=== PATIENT | female | born 1955 | race Caucasian/White ===

== ENCOUNTER → 2017-02-01 | Outpatient (CLI) | payer OTHER ==
[~2017-02-01] MED LIST: CALC1CAP21 PO; CRAN450T9 PO; D50KC PO; GLUC-113 PO; MULT-974 PO; NAPR375T2 PO; NITR-33 PO; OMEP-10 PO; OMG1KC PO; PREMARIN; VALS320T8 PO
[2017-02-01 10:21] LABS: BILIRUBIN,URINE NEGATIVE (NEGATIVE); KETONES,URINE NEGATIVE (NEGATIVE); LEUKOCYTE ESTERASE ,URINE NEGATIVE (NEGATIVE); NITRITE,URINE NEGATIVE (NEGATIVE); PH,URINE 6.5 (5-9); PROTEIN,URINE NEGATIVE (NEGATIVE); UROBILINOGEN,URINE NORMAL (NORMAL)
[2017-02-01 10:48] LABS: SQUAMOUS EPITHELIAL CELL,UR RARE /HPF
== END ==
LOC: LAB 10:07
PROVIDERS: ATTEND Urology
DX: R82.5 Elevated urine levels of drugs, medicaments and biological substances (principal); Z87.440 Personal history of urinary (tract) infections
CPT/HCPCS: 81000

== ENCOUNTER → 2017-08-26 | Outpatient (CLI) | payer OTHER | LOC: RAD 12:36 | PROVIDERS: ATTEND Nurse Practitioner | DX: Z12.31 Encounter for screening mammogram for malignant neoplasm of breast (principal) | CPT/HCPCS: 77067 ==

== ENCOUNTER → 2018-08-28 | Outpatient (CLI) | payer OTHER, MEDICARE ==
--- NOTE | 2018-08-30 10:45 | Diagnostic Imaging Report ---
Digital mammogram. Bilateral screening with 3-D tomosynthesis with CAD. The study was compared to prior exams of 08/26/2017, 08/25/2016, and 08/15/2015. At this time, there are no current complaints. There are scattered fibroglandular densities in both breasts which could obscure a lesion. Overall, there does not appear to have been any significant change. The benign-appearing nodular density in the lateral retroareolar region of the right breast seen on previous exams back to 08/15/2015 does not appear to have changed significantly. This finding has a generally benign appearance. There is no primary or secondary sign of malignancy noted. Impression: There is no evidence for malignancy. ACR BI-RADS Category 1: Negative. Result letter will be mailed to the patient. Note: At least 10% of breast cancer is not imaged by mammography. Dictated by: Dictated on workstation # [id number]
== END ==
LOC: RAD 11:26
PROVIDERS: ATTEND Nurse Practitioner
DX: Z12.31 Encounter for screening mammogram for malignant neoplasm of breast (principal)
CPT/HCPCS: 77067

== ENCOUNTER → 2018-10-13 | Outpatient (CLI) | payer MEDICARE ==
[~2018-10-13] MED LIST changes: +RECEIVED CONTRAST (Hold Metformin) IV SCH
[2018-10-13 07:52] LABS: BUN/CREATININE RATIO 16; CREATININE SERUM 0.86 MG/DL (0.60-1.30); GFR ESTIMATED > 60
[2018-10-13] MEDS: IOHEXOL 350 MG/ML 100 ML (OMNIPAQUE 350) VIAL IV ONE (08:06)
[2018-10-13] MEDS: NS 100 ML (IVPB) BAG IV ONE (08:07)
--- NOTE | 2018-10-13 08:48 | Diagnostic Imaging Report ---
PROCEDURE: CT neck soft tissue with contrast. TECHNIQUE: Multiple contiguous axial images were obtained through the neck after the administration of contrast. INDICATION: Right neck lump. No prior studies are available for comparison. Initial image through the brain does show a rounded partially calcified density in the right anterior aspect of the [place] approximately 9 mm in size. While this could conceivably represent volume averaging with the sella, possibly an aneurysm cannot be entirely excluded. CT angiography of the brain would be useful for further evaluation. A BB marker is placed at the area of palpable abnormality in the right neck. At the site of palpable abnormality, no definite underlying abnormality is seen. This is at the level of the submandibular glands. Bilateral submandibular glands as well as bilateral parotid glands appear to be symmetric. Posterior nasopharynx, oropharynx and larynx are unremarkable. Thyroid does contain several small low-density nodules, largest on the left in the lower pole measuring 9 mm. The parotid, carotid and assembler ping pong table spaces are unremarkable. No pathologically enlarged cervical lymph nodes are identified. No fluid collections are detected. There do appear to be mucous retention cysts or polyps in bilateral maxillary sinuses the largest on the right. IMPRESSION: 1. No underlying abnormality is seen at the site of palpable abnormality in the right neck. 2. Mucous retention cysts or polyps in bilateral maxillary sinuses. 3. Rounded partially calcified density in the region [place]. Aneurysm cannot excluded. CT angiography of the brain would be recommended for further evaluation. Dictated by: Dictated on workstation # [id number]
== END ==
LOC: RAD 07:26
PROVIDERS: ATTEND Otolaryngology Otolaryngology/Facial Plastic Surgery
DX: G93.89 Other specified disorders of brain (principal); R22.1 Localized swelling, mass and lump, neck
CPT/HCPCS: 36415; 70491; 82565; 84520

== ENCOUNTER → 2018-10-20 | Outpatient (CLI) | payer MEDICARE ==
[~2018-10-20] MED LIST changes: +IOHEXOL 350 MG/ML 100 ML (OMNIPAQUE 350) VIAL IV ONE; +NS 100 ML (IVPB) BAG IV ONE
--- NOTE | 2018-10-20 10:02 | Diagnostic Imaging Report ---
PROCEDURE: US Thyroid. TECHNIQUE: Multiple real-time grayscale images were obtained of the thyroid in various projections. INDICATION: Thyroid nodules. Correlation is made with CT soft tissue neck study from 10/13/2018. FINDINGS: Right lobe of the thyroid measures 4.3 x 2.2 x 2.3 cm and the left lobe measures 4.1 x 1.3 x 1.5 cm. Isthmus is approximately 4 mm in thickness. There is a mixed solid and cystic nodule involving the mid left lobe of the thyroid measuring 1.5 x 0.8 x 1.1 cm. No definite microcalcifications are seen. Right lobe contains 2 subcentimeter nodules, largest approximately 0.8 x 0.6 x 0.7 cm in the mid aspect. Smaller nodules approximate 5 mm in size. No other abnormalities are seen. IMPRESSION: Bilateral thyroid nodules, largest on the left. Fine-needle aspiration could be performed to the dominant nodule on the left. If not, followup ultrasound in 6 months could be performed to confirm stability. Dictated by: Dictated on workstation # [id number]
--- NOTE | 2018-10-20 11:02 | Diagnostic Imaging Report ---
PROCEDURE: CT angiography of the head with and without contrast. TECHNIQUE: Noncontrast CT of the head was obtained. Subsequently, after intravenous administration of contrast, thin section axial CT angiography of the head was performed. Source data was reformatted into multiple MIP reformats. Delayed postcontrast acquisition of the head was also acquired. INDICATION: Abnormal recent CT neck demonstrating a calcified density near the [place]. The study is performed for further evaluation. COMPARISON: Comparison is made with CT neck study from 10/13/2018. FINDINGS: Pre contrast images demonstrate ventricles and sulci to be within normal limits. No sulcal effacement or midline shift is seen. No acute intra-axial or extra-axial hemorrhage is detected. There is some mucosal thickening in the left maxillary sinus. Near-complete opacification of right maxillary sinus is noted. Delayed post contrast images are without abnormal enhancement. CT angiographic images demonstrate enhancing mass in the region of the planum sphenoidale just to the right of midline measuring 11 mm AP x 10 mm transverse. This correlates to the calcified lesion noted on the neck CT. This does have some calcifications within it. This appears to be separate from the anterior cerebral arteries. This is in close proximity to the anterior portion of the cavernous carotid artery. Sagittal reconstructions do show some flattening along the inferior margin of the lesion on the planum sphenoidale. There appear to be tiny probable dural tails along the anterior and posterior aspect. Features are most suggestive of planum sphenoidale meningioma. Bilateral middle cerebral arteries are unremarkable. The basilar and posterior cerebral arteries are unremarkable. There is patent left posterior communicating artery, normal variant. 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 While aneurysm cannot be entirely excluded due to its close proximity to the right distal internal carotid artery, other features of the mass make aneurysm less likely. Additional CT angiogram followup in approximately three to six months would be recommended to show continued stability. Dictated by: Dictated on workstation # [id number]
== END ==
LOC: RAD 08:28
PROVIDERS: ATTEND Otolaryngology Otolaryngology/Facial Plastic Surgery
DX: E04.2 Nontoxic multinodular goiter (principal); G93.89 Other specified disorders of brain
CPT/HCPCS: 70496; 76536

== ENCOUNTER → 2018-10-31 | Outpatient (CLI) | payer MEDICARE ==
[~2018-10-31] MED LIST changes: +GADOBUTROL 10 MMOL/10 ML (GADAVIST) VIAL IV ONE; -IOHEXOL 350 MG/ML 100 ML (OMNIPAQUE 350) VIAL IV ONE; -NS 100 ML (IVPB) BAG IV ONE; -RECEIVED CONTRAST (Hold Metformin) IV SCH
--- NOTE | 2018-10-31 12:45 | Diagnostic Imaging Report ---
PROCEDURE: MR imaging of the brain with and without contrast. TECHNIQUE: Multiplanar, multisequence MR imaging of the brain was performed with and without contrast. INDICATION: Meningioma noted on CT recently. Study is performed for further evaluation. Correlation is made with CT angiogram of the brain study from 10/20/2018. Ventricles and sulci appear within normal limits. 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 No diffusion restriction is identified on today's study to suggest acute ischemia. There is no midline shift. No acute intra-axial or extra-axial hemorrhage is identified. There is fairly homogeneous enhancing mass just to the right of midline cephalad to the sphenoid sinus measuring 9 mm cephalocaudal by 10 mm transverse by 10 mm AP. This appears to have a dural tail and is suggestive of meningioma at the planum sphenoidale along the inferior right frontal lobe convexity. No other enhancing lesions are identified. Corpus callosum is unremarkable. The sella parasellar structures are unremarkable. Note is made of moderate amount of mucosal thickening of the maxillary sinuses with probable mucous attention cysts or polyps in bilateral maxillary sinuses, largest on the right. IMPRESSION: Findings suggestive of a meningioma, as described along the inferior right frontal lobe convexity at the planum sphenoidale. No other significant abnormality is detected. Dictated by: Dictated on workstation # [id number]
== END ==
LOC: RAD 08:27
PROVIDERS: ATTEND Otolaryngology Otolaryngology/Facial Plastic Surgery
DX: D32.0 Benign neoplasm of cerebral meninges (principal)
CPT/HCPCS: 70553

== ENCOUNTER → 2018-11-02 | Outpatient (CLI) | payer MEDICARE ==
[~2018-11-02] VITALS: Ht 175.3 cm; Wt 113.4 kg
[~2018-11-02] MED LIST changes: -GADOBUTROL 10 MMOL/10 ML (GADAVIST) VIAL IV ONE
--- NOTE | 2018-11-02 16:48 | Diagnostic Imaging Report ---
INDICATION: Left thyroid nodule. PROCEDURE: Ultrasound guidance is provided for Dr. Douglass prior to thyroid FNA. FINDINGS: Guidance was provided for Dr. Douglass during a left thyroid nodule FNA. A total of 3 passes were made. IMPRESSION: Ultrasound guidance for left thyroid FNA by Dr. Douglass. Dictated by: Dictated on workstation # [id number]
== END ==
LOC: RAD 11:03
PROVIDERS: ATTEND Otolaryngology Otolaryngology/Facial Plastic Surgery
DX: E04.1 Nontoxic single thyroid nodule (principal)
CPT/HCPCS: 76942

== ENCOUNTER → 2019-05-31 | Outpatient (CLI) | payer MEDICARE ==
--- NOTE | 2019-05-31 12:55 | Diagnostic Imaging Report ---
PROCEDURE: US Thyroid. TECHNIQUE: Multiple real-time grayscale images were obtained of the thyroid in various projections. INDICATION: Thyroid nodule. FINDINGS: The patient underwent an ultrasound-guided aspiration of a nodule in the left lobe of the thyroid on 11/02/2018. The results of the exam are not known to me. On this study, the nodule in question is again identified. This nodule measures 1.5 x 0.8 x 0.9 cm and does show some internal vascularity. The nodule seems similar in appearance to the prior exam, however. Correlation with the patient's biopsy results would be recommended. The left lobe of the thyroid is otherwise unremarkable and the left lobe is not enlarged measuring 3.7 x 1.5 x 1.6 cm (normal gland size is 4-5 x 2 x 2 cm or less). The right lobe does not appear to be enlarged either. The right lobe measures 3.8 x 1.7 x approximately 1.5 cm. There are two small areas of mixed echogenicity within the right lobe. One is located in the inferior pole and measures 0.6 x 0.6 x 0.6 cm while the other is in the superior pole and measures 0.5 x 0.4 x 0.5 cm. I suspect that these are benign. If previous studies are available, they would be helpful for comparison. The isthmus is unremarkable. IMPRESSION: 1. The solid nodule in the inferior pole of the left lobe of the thyroid seen previously appears stable. Correlation with the patient's biopsy results would be recommended. 2. The small hypoechoic subcentimeter lesions of mixed echogenicity in the right lobe are most likely benign. If previous studies are available, they would be helpful for comparison. Otherwise, it may prove worthwhile to have a short-term (six-month) followup thyroid ultrasound exam for further evaluation. Dictated by: Dictated on workstation # [id number]
== END ==
LOC: RAD 10:32
PROVIDERS: ATTEND Otolaryngology Otolaryngology/Facial Plastic Surgery
DX: E04.1 Nontoxic single thyroid nodule (principal)
CPT/HCPCS: 76536

== ENCOUNTER → 2019-09-18 | Outpatient (CLI) | payer MEDICARE ==
--- NOTE | 2019-09-18 11:48 | Diagnostic Imaging Report ---
INDICATION: Routine screening. COMPARISON: Comparison is made with prior mammograms from 08/28/2018 and 08/26/2017. 2-D and 3-D bilateral screening mammography was performed. The current study was also evaluated with a Computer Aided Detection (CAD) system. 3-D tomosynthesis was also performed and reviewed. FINDINGS: Scattered fibroglandular densities are identified bilaterally. Previously noted circumscribed retroareolar nodule on the right has decreased in size. There are benign calcifications. No mass or malignant-appearing microcalcifications are seen. Axillae are unremarkable. IMPRESSION: No mammographic features suspicious for malignancy are identified. ACR BI-RADS Category 2: Benign findings. Result letter will be mailed to the patient. Note: At least 10% of breast cancer is not imaged by mammography. Dictated by: Dictated on workstation # [id number]
== END ==
LOC: RAD 09:16
PROVIDERS: ATTEND Obstetrics & Gynecology
DX: Z12.31 Encounter for screening mammogram for malignant neoplasm of breast (principal)
CPT/HCPCS: 77067

== ENCOUNTER → 2019-10-23 | Outpatient (CLI) | payer MEDICARE ==
--- NOTE | 2019-10-23 16:04 | Diagnostic Imaging Report ---
INDICATION: 64 roll a dramatic postmenopausal female. COMPARISON: None available. FINDINGS: AP Spine L1-L4: [BMD (g/cm2): 1.049] [T-Score: -1.3] [Z-Score: -0.8] [BMD Previous: NA] [BMD % Change: NA] LT Hip Neck: [BMD (g/cm2): 0.914] [T-Score: -0.9] [Z-Score: -0.1] LT Hip Total: [BMD (g/cm2):0.837] [T-Score:-1.4] [Z-Score: -0.9] [BMD Previous: NA] [BMD % Change: NA] RT Hip Neck: [BMD (g/cm2):0.958] [T-Score:-0.6] [Z-Score:0.2] RT Hip Total: [BMD (g/cm2):0.957] [T-score:-0.4] [Z-Score:0.0] [BMD Previous:NA] [BMD % Change:NA] *Indicates significant change from prior examination based on 95% confidence level. World Health Organization criteria for BMD interpretation classify patients as Normal (T-score at or above -1.0), Osteopenic (T-score between -1.0 and -2.5) or Osteoporotic (T-score at or below -2.5). LIMITATIONS AND MODIFICATION: None. FRACTURE RISK (FRAX SCORE): The ten year probability of (%): Major Osteoporotic Fracture: [8.1] Hip Fracture: [0.8] IMPRESSION: 1. Osteopenia (Low bone mass). 2. Baseline examination. 3. See below National Osteoporosis Foundation guidelines on when to potentially initiate pharmacologic therapy. Based on the National Osteoporosis Foundation Guidelines, pharmacologic treatment should be initiated in any of the following, unless clinical conditions suggest otherwise: * Any patient with prior fragility fracture of the hip or vertebrae. A spine fracture indicates 5X risk for subsequent spine fracture and 2X risk for subsequent hip fracture. * Osteoporosis (T-score <-2.5). * Postmenopausal women and men age 50 and older with low bone mass/osteopenia (T-score between -1.0 and -2.5) by DXA and 10-year major osteoporotic fracture greater than 20% or a 10-year probability of hip fracture greater than 3%. These fracture risks are supplied above in the FRAX score, if applicable. * Clinician judgement and/or patient preferences may indicate treatment for people with 10-year fracture probabilities above or below these levels. Dictated by: Dictated on workstation # [id number]
== END ==
LOC: RAD 10:56
PROVIDERS: ATTEND Nurse Practitioner Family
DX: M81.0 Age-related osteoporosis without current pathological fracture (principal); M85.80 Other specified disorders of bone density and structure, unspecified site; Z78.0 Asymptomatic menopausal state
CPT/HCPCS: 77080

== ENCOUNTER → 2019-11-13 | Outpatient (CLI) | payer MEDICARE ==
[~2019-11-13] MED LIST changes: +GADOBUTROL 15 MMOL/15 ML (GADAVIST) VIAL IV ONE
[2019-11-13 12:25] LABS: BUN/CREATININE RATIO 18; GFR ESTIMATED > 60
--- NOTE | 2019-11-13 13:52 | Diagnostic Imaging Report ---
PROCEDURE: MR imaging of the brain with and without contrast. TECHNIQUE: Multiplanar, multisequence MR imaging of the brain was performed with and without contrast. INDICATION: Meningioma, followup. COMPARISON: Correlation is made with the prior MRI of the brain from 10/31/2018. FINDINGS: The ventricles and sulci are within normal limits. The normal expected flow-voids within the carotid siphons are seen. There is no diffusion restriction identified. An enhancing lesion along the inferior right frontal lobe at the planum sphenoidale is again noted and very similar in size from the prior exam. This measures approximately 10 mm cephalocaudal x 9 mm AP x 9 mm transverse. This compares with 8 mm cephalocaudal x 9 mm AP x 10 mm transverse when measured by the same technique on the prior exam. No new mass is identified. There is no midline shift. No acute intra-axial or extra-axial hemorrhage is detected. The corpus callosum is unremarkable. The sella and parasellar structures are unremarkable. IMPRESSION: Stable enhancing lesion along the inferior right frontal lobe convexity at the planum sphenoidale, consistent with meningioma, when compared with examination from 1 year earlier. Dictated by: Dictated on workstation # [id number]
--- NOTE | 2019-11-13 14:04 | Diagnostic Imaging Report ---
PROCEDURE: MRI neck with and without contrast. TECHNIQUE: Multiplanar, multisequence MRI of the neck was performed with and without contrast. INDICATION: Lump anterior neck. FINDINGS: An oil marker was placed at the area of palpable abnormality in the right lower neck. There is ovoid circumscribed nodule posterior to the right submandibular gland measuring 13 mm x 17 mm. This may represent a mildly prominent lymph node. No other mass is seen. Parotid glands are symmetric bilaterally and unremarkable. Submandibular glands appear to be fairly symmetric. Posterior cervical chain is unremarkable. The posterior nasopharynx and oropharynx are unremarkable. Epiglottis and larynx are unremarkable. No supraclavicular lymphadenopathy is seen. No fluid collections are identified. IMPRESSION: Mildly prominent right submandibular lymph node. This study is otherwise unremarkable. Dictated by: Dictated on workstation # [id number]
== END ==
LOC: RAD 11:44
PROVIDERS: ATTEND Otolaryngology Otolaryngology/Facial Plastic Surgery
DX: D32.0 Benign neoplasm of cerebral meninges (principal); R59.0 Localized enlarged lymph nodes
CPT/HCPCS: 36415; 70543; 70553; 82565; 84520

== ENCOUNTER → 2020-01-11 | Outpatient (CLI) | payer MEDICARE ==
[~2020-01-11] MED LIST changes: -GADOBUTROL 15 MMOL/15 ML (GADAVIST) VIAL IV ONE
--- NOTE | 2020-01-11 17:49 | Diagnostic Imaging Report ---
PROCEDURE: US Thyroid. TECHNIQUE: Multiple real-time grayscale images were obtained of the thyroid in various projections. INDICATION: Thyroid nodules, follow-up. Correlation is made with prior thyroid ultrasound from 05/31/2019. FINDINGS: The right lobe of the thyroid measures 4.2 x 2.3 x 2.0 cm and the left lobe measures 3.5 x 1.3 x 1.5 cm. A mixed solid and cystic nodule in the lower pole of the left lobe of the thyroid measures 1.5 x 1.0 x 0.8 cm, similar to prior exam. Cystic-appearing nodules in the right lobe remain stable and less than 1 cm in size. No new mass is detected. Isthmus is 4 mm in thickness. IMPRESSION: Stable bilateral thyroid nodules when compared with examination from 05/31/2019. Dictated by: Dictated on workstation # [id number]
== END ==
LOC: RAD 14:14
PROVIDERS: ATTEND Otolaryngology Otolaryngology/Facial Plastic Surgery
DX: E04.2 Nontoxic multinodular goiter (principal)
CPT/HCPCS: 76536

== ENCOUNTER → 2020-09-30 | Outpatient (CLI) | payer MEDICARE ==
--- NOTE | 2020-10-01 13:21 | Diagnostic Imaging Report ---
INDICATION: Routine screening. COMPARISON: 09/18/2019 and 08/28/2018. TECHNIQUE: 2D and 3D bilateral screening mammography was performed with CAD. FINDINGS: Scattered fibroglandular densities are identified bilaterally. The parenchymal pattern is stable. No dominant mass or malignant appearing microcalcifications are seen. The axillae are unremarkable. There are benign calcifications. IMPRESSION: No mammographic features suspicious for malignancy are identified. ACR BI-RADS Category 2: Benign findings. Result letter will be mailed to the patient. Note: At least 10% of breast cancer is not imaged by mammography. Dictated by: Dictated on workstation # [id number]
== END ==
LOC: RAD 15:09
PROVIDERS: ATTEND Obstetrics & Gynecology
DX: Z12.31 Encounter for screening mammogram for malignant neoplasm of breast (principal)
CPT/HCPCS: 77063; 77067

== ENCOUNTER → 2020-10-31 | Outpatient (CLI) | payer MEDICARE ==
[~2020-10-31] MED LIST changes: +GADOBUTROL 15 MMOL/15 ML (GADAVIST) VIAL IV ONE
--- NOTE | 2020-10-31 10:12 | Diagnostic Imaging Report ---
PROCEDURE: MR imaging of the brain with and without contrast. TECHNIQUE: Multiplanar, multisequence MR imaging of the brain was performed with and without contrast. INDICATION: Follow-up meningioma. COMPARISON: 11/13/2019. FINDINGS: Stable size and appearance of the meningioma in the anterior cranial fossa right of midline measuring 0.9 cm AP, 0.8 cm transverse, and 0.7 cm craniocaudal. No significant mass effect or evidence of associated parenchymal edema is seen. No new masses are seen. No acute ischemia or hemorrhage. Old focal infarct is seen in the inferior left cerebellum. The ventricles, cortical sulci, and basilar cisterns are symmetric and unremarkable. The sellar and suprasellar regions have a normal appearance. The brainstem and posterior fossa are unremarkable. Retained secretions are seen in the bilateral maxillary sinuses. Small left mastoid effusion is present. The globes and orbits are symmetric and unremarkable. The scalp and calvarium have a normal appearance. IMPRESSION: 1. Stable meningioma in the anterior cranial fossa right of midline. No new enhancing lesions are identified. 2. No acute ischemia or hemorrhage. Dictated by: Dictated on workstation # [id number]
--- NOTE | 2020-10-31 10:48 | Diagnostic Imaging Report ---
PROCEDURE: US Thyroid. TECHNIQUE: Multiple real-time grayscale images were obtained of the thyroid in various projections. INDICATION: Thyroid mass COMPARISON: 01/11/2020. Right thyroid lobe measured 4.2 cm unchanged in size from comparison. It contains midpole subcentimeter circumscribed nodules of 7 mm and 5 mm maximal unchanged. The left lobe measured 3.3 cm long axis. It contains a lower pole somewhat heterogeneous and predominantly hypoechoic mass measuring 1.4 x 1.2 cm previously 1.5 x 1.0 cm not significantly changed. No new mass. The parenchyma appeared otherwise unremarkable with normal color Doppler flow IMPRESSION: Stable unchanged bilateral thyroid nodules on the right subcentimeter and predominantly cystic on the left. Heterogeneous, hypoechoic and solid and is a TI-RADS 4 lesion. Continued follow-up with repeat exam in one year's time recommended. Dictated by: Dictated on workstation # [id number]
--- NOTE | 2020-10-31 10:50 | Diagnostic Imaging Report ---
PROCEDURE: MRI neck with and without contrast. TECHNIQUE: Multiplanar, multisequence MRI of the neck was performed with and without contrast. INDICATION: Right neck lump. Follow-up prominent right submandibular lymph node. COMPARISON: 11/13/2019. FINDINGS: There has been interval increase in size in the right submandibular mass now measuring 1.8 x 1.3 cm and 1.7 cm craniocaudal, previously measuring 1.7 x 1.3 x 1.4 cm. This also demonstrates contrast enhancement. There is no fat plane between this mass and the right submandibular gland. The left submandibular gland is unremarkable. The bilateral parotid glands have a normal appearance. Stable bilateral small thyroid nodules. The aerodigestive tract is patent. No mass is seen in the nasopharynx, oropharynx, hypopharynx, or larynx. No evidence of airway compromise. No prevertebral or retropharyngeal fluid collections. The parapharyngeal fat planes are preserved. The included lung apices are clear. The flow voids of the major vascular structures in the neck are preserved. Please see the separate dictated report on the MRI brain for intracranial findings. IMPRESSION: 1. Interval increase in size in the enhancing mass in the right submandibular region. This does not demonstrate any fat planes between the right submandibular gland and may represent a primary salivary gland tumor. Recommend further evaluation with ultrasound of the right submandibular region and ultrasound-guided FNA or biopsy to further evaluate. 2. No mass or fluid collection in the aerodigestive tract. No evidence of airway compromise. Dictated by: Dictated on workstation # [id number]
== END ==
LOC: RAD 08:00
PROVIDERS: ATTEND Otolaryngology Otolaryngology/Facial Plastic Surgery
DX: D32.0 Benign neoplasm of cerebral meninges (principal); E04.2 Nontoxic multinodular goiter; R22.1 Localized swelling, mass and lump, neck
CPT/HCPCS: 70543; 70553; 76536

== ENCOUNTER → 2020-11-26 | Outpatient (CLI) | payer MEDICARE ==
[~2020-11-26] MED LIST changes: -GADOBUTROL 15 MMOL/15 ML (GADAVIST) VIAL IV ONE
--- NOTE | 2020-11-26 17:22 | Diagnostic Imaging Report ---
CLINICAL INDICATION: Patient with right cervical adenopathy. EXAM: Focused ultrasound evaluation of the right submandibular region. COMPARISON: Thyroid ultrasound dated 10/31/2020. MRI of the neck soft tissue with and without contrast dated 10/31/2020. FINDINGS: There is a 1.9 cm x 2.0 cm x 1.4 cm slightly heterogeneous hypoechoic lobulated, solid mass associated with the right submandibular gland. This is noted on the prior MRI. There is central Doppler flow associated with it. There is no other significant abnormality seen in the region. IMPRESSION: There is a 2.0 cm solid mass associated with the right submandibular gland which demonstrates central Doppler flow. This correlates to the abnormality seen on the comparison MRI of the neck soft tissue. Given that this mass enhances and associated with the right submandibular gland, ENT consultation with biopsy and/or removal is suggested to exclude a salivary gland malignancy. Dictated by: Dictated on workstation # [id number]
== END ==
LOC: RAD 15:00
PROVIDERS: ATTEND Otolaryngology Otolaryngology/Facial Plastic Surgery
DX: R59.0 Localized enlarged lymph nodes (principal); K11.8 Other diseases of salivary glands
CPT/HCPCS: 76536

== ENCOUNTER → 2020-12-05 | Outpatient (CLI) | payer MEDICARE ==
[~2020-12-05] VITALS: Ht 175.3 cm; Wt 115.9 kg
[~2020-12-05] MED LIST changes: +LIDOCAINE 1% INJ 20 ML 20 ML VIAL INJ ONE
--- NOTE | 2020-12-05 14:52 | Diagnostic Imaging Report ---
INDICATION: Right submandibular mass. Patient presents for ultrasound-guided fine-needle aspiration. PROCEDURE: Patient was brought to the procedure room and placed on table in supine position. Ultrasound imaging of the right neck was performed to evaluate appropriate entry site. Right neck was then prepped and draped in the usual sterile fashion. A small amount of 1% lidocaine was utilized for local anesthesia. A total of four passes were made into the solid mass in the right submandibular location utilizing 25-gauge needles and fine-needle aspiration technique. A total of two core biopsies were obtained utilizing the 20-gauge [place] needle. The needles were removed and hemostasis was obtained. Patient tolerated the procedure well and left the department in stable condition. IMPRESSION: Successful ultrasound-guided fine needle aspiration and core biopsy of the solid right submandibular mass. Pathology results are currently pending. Dictated by: Dictated on workstation # [id number]
== END ==
LOC: RAD 09:00
PROVIDERS: ATTEND Otolaryngology Otolaryngology/Facial Plastic Surgery
DX: R22.0 Localized swelling, mass and lump, head (principal)
CPT/HCPCS: 10005

== ENCOUNTER → 2020-12-15 | Outpatient (CLI) | payer MEDICARE ==
[~2020-12-15] MED LIST changes: -LIDOCAINE 1% INJ 20 ML 20 ML VIAL INJ ONE
--- NOTE | 2020-12-15 16:49 | Diagnostic Imaging Report ---
PROCEDURE: CT bilateral knees without contrast. TECHNIQUE: Multiple axial CT images through the bilateral knees were performed. 2D reconstruction in the sagittal and coronal planes was performed. Auto Exposure Controls were utilized during the CT exam to meet ALARA standards for radiation dose reduction. DATE: December 15, 2020. INDICATION: 65-year-old female, chronic bilateral knee pain. FINDINGS: Combined acquisition imaging of both knees does limit trabecular and bone detail. There is severe medial and patellofemoral compartment joint space loss of the left knee with dnuc-sy-huuf articulation. There is marked irregularity of the articulating surfaces of the patellofemoral articulation. There is moderate lateral compartment joint space loss. There are central and marginal osteophytes associated with the lateral compartment with marginal osteophytes present at the patellofemoral and medial compartments. There is no large knee joint effusion on the left. There is no acute fracture. There is no cortical or aggressive bone destruction. There is severe patellofemoral and moderate medial and lateral compartment joint space loss of the right knee. There is marked irregularity of the articulating surfaces associated with the patellofemoral compartment. There is no large right knee joint effusion. There is no acute fracture. There is no aggressive bone lesion. There is chondrocalcinosis. IMPRESSION: 1. Advanced tricompartmental arthritis of both knees, most notably involving the patellofemoral compartments bilaterally and the medial compartment of the left knee. Osteoarthritis and calcium pyrophosphate dihydrate deposition disease would be in the differential diagnosis for the cause of the arthritis. 2. No large knee joint effusion. Dictated by: Dictated on workstation # [id number]
== END ==
LOC: RAD 15:32
PROVIDERS: ATTEND Orthopaedic Surgery
DX: M17.0 Bilateral primary osteoarthritis of knee (principal)

== ENCOUNTER 2021-01-08 05:35 | Outpatient (RCR) | payer MEDICARE ==
[~2021-01-08] VITALS: Ht 175.3 cm; Wt 118.0 kg
[2021-01-08] MEDS ORDERED: MAGN400C PO (14:45)
[2021-01-08] MEDS ORDERED: DIPH25CA79 PO (14:45)
[2021-01-08] MEDS ORDERED: NAPR-1084 PO (14:45)
[2021-01-08] MEDS ORDERED: OLME40TA12 PO (14:45)
[2021-01-08] MEDS ORDERED: FLUT9.9S NS (14:45)
[2021-01-08] MEDS ORDERED: L.AC1CAP6 PO (14:45)
[2021-01-08] MEDS ORDERED: AMLO-250 PO (14:45)
[2021-01-08] MEDS ORDERED: OMEP20TA33 PO (14:45)
[2021-01-16] MEDS ORDERED: MAGN125C PO ×2 (14:23)
[2021-01-16] MEDS ORDERED: NAPR220C61 PO (14:23)
[2021-01-16] MEDS ORDERED: [UNRECOGNIZED DRUG - OTHER] PO (14:23)
[2021-01-16] MEDS ORDERED: CALC1CAP5 PO (14:23)
[2021-01-16] MEDS ORDERED: [UNRECOGNIZED DRUG - OTHER] PO ×2 (14:23)
[2021-01-16] MEDS ORDERED: GLUC1CAP37 PO (14:23)
[2021-01-16] MEDS ORDERED: FLUT9.9S NS (14:23)
[2021-01-16] MEDS ORDERED: GLUC-235 PO (14:23)
== END 2021-01-15 09:03 | disposition home or self-care (01) ==
LOC: PREOP 05:35 → EDSTATUS 12:00 → PREOP 01-15 09:03
PROVIDERS: ATTEND Otolaryngology Otolaryngology/Facial Plastic Surgery
DX: Z01.812 Encounter for preprocedural laboratory examination (principal); K11.8 Other diseases of salivary glands; Z20.822 Contact with and (suspected) exposure to COVID-19
CPT/HCPCS: 87635

== ENCOUNTER 2021-01-16 07:32 | Day surgery (SDC) | payer MEDICARE ==
[~2021-01-16] VITALS: Ht 175.3 cm; Wt 118.0 kg
[2021-01-16] VITALS (10 sets, daily range): BP systolic 114–153; BP diastolic 61–89
[~2021-01-16 07:32] MED LIST changes: +AMLO-250 PO; +DIPH25CA79 PO; +FLUT9.9S NS; +L.AC1CAP6 PO; +MAGN400C PO; +NAPR-1084 PO; +OLME40TA12 PO; +OMEP20TA33 PO
[2021-01-16] MEDS ORDERED: LACTATED RINGERS 1,000 ML IV PRN (07:45)
--- NOTE | 2021-01-16 08:15 | Progress Note-Pre Operative ---
Pre-Operative Progress Note H&P Reviewed The H&P was reviewed, patient examined and no changes noted. Date Seen by Provider: January 16, 2021 Time Seen by Provider: 06:30 Date H&P Reviewed: January 16, 2021 Time H&P Reviewed: 08:15 Pre-Operative Diagnosis: Right Submandibular Gland Mass SHENA ABARCA MD January 16, 2021 08:15
[2021-01-16] MEDS ORDERED: LIDOCAINE PF 2% 5 ML (XYLOCAINE) VIAL ONE (08:25)
[2021-01-16] MEDS ORDERED: GLYCOPYRROLATE 0.2 MG/ML (ROBINUL) 2 ML VIAL ONE (08:25)
[2021-01-16] MEDS ORDERED: fentaNYL INJ 100 MCG/2 ML AMP ONE (08:25)
[2021-01-16] MEDS ORDERED: NEOSTIGMINE 3 MG/3 ML VIAL ONE (08:25)
[2021-01-16] MEDS ORDERED: ONDANSETRON 4 MG/2 ML (SDV) Z0FRAN ONE (08:25)
[2021-01-16] MEDS ORDERED: proPOfol 200 MG/20 ML (DIPRIVAN) VIAL IV ONE (08:25)
[2021-01-16] MEDS ORDERED: ROCURONIUM 10 MG/ML 5 ML SYRINGE IV ONE (08:25)
[2021-01-16] MEDS ORDERED: SEVOFLURANE (ULTANE) 15 ML INHAL SOLN ONE ×6 (08:25→10:37)
[2021-01-16] MEDS ORDERED: MIDAZOLAM 2 MG/2 ML (VERSED) VIAL ONE (08:26)
[2021-01-16] MEDS ORDERED: MUPIROCIN 2% OINT 22 GM (BACTROBAN) TUBE ONE (08:34)
[2021-01-16] MEDS ORDERED: LIDOCAINE/EPI 1%-1:100,000 (XYLOCAINE) 20ML ONE (08:34)
[2021-01-16] MEDS ORDERED: PHENYLEPHRINE 100 MCG/ML 10 ML (ANESTHESIA) SYR ONE (10:36)
[2021-01-16] MEDS ORDERED: DESFLURANE (SUPRANE) 15 ML INHAL SOLN ONE (10:38)
[2021-01-16] MEDS ORDERED: ACETAMINOPHEN 325 MG TABLET PO PRN (10:45)
--- NOTE | 2021-01-16 10:45 | Progress Note-Post Operative ---
Post-Operative Progess Note Surgeon (s)/Director Of Vital Statistics (s) Surgeon SHENA ABARCA MD Director Of Vital Statistics n/a Pre-Operative Diagnosis Right Submandibular Gland Mass Post-Operative Diagnosis same Post-Op Procedure Note Date of Procedure: January 16, 2021 Name of Procedure Performed: Excision of Right Submandibular Gland Description & Findings Description and Findings: n/a Anesthesia Type get Estimated Blood Loss minimal Packing none. Specimen(s) collected/removed right submandibular galnd for frozen SHENA ABARCA MD January 16, 2021 10:45
[2021-01-16] MEDS ORDERED: fentaNYL INJ 100 MCG/2 ML AMP IVP ONE (11:15)
[2021-01-16] MEDS ORDERED: ONDANSETRON 4 MG/2 ML (SDV) Z0FRAN IVP PRN ×2 (11:15→18:00)
[2021-01-16] MEDS ORDERED: morphine INJ 10 MG/ML 1ML (SYR OR VIAL) IVP ONE (11:15)
--- NOTE | 2021-01-16 11:16 | Anesthesia-General Post-Op ---
General Patient Condition Mental Status/LOC: Same as Preop Cardiovascular: Satisfactory Nausea/Vomiting: Absent Respiratory: Satisfactory Pain: Controlled Complications: Absent Post Op Complications Complications None Follow Up Care/Instructions Patient Instructions None needed. Anesthesia/Patient Condition Patient Condition Patient is doing well, no complaints, stable vital signs, no apparent adverse anesthesia problems. No complications reported per nursing. CAROLANN LYLE CRNA January 16, 2021 11:16
[2021-01-16] MEDS ORDERED: morphine INJ 10 MG/ML 1ML (SYR OR VIAL) ONE (11:20)
[2021-01-16] MEDS ORDERED: HYDROcodone/APAP 5 MG/325 MG (LORTAB) TAB ONE ×2 (12:20→13:02)
[2021-01-16] MEDS: HYDROcodone/APAP 5 MG/325 MG (LORTAB) TAB PO PRN ×4 (12:31→22:50)
[2021-01-16] MEDS ORDERED: [UNRECOGNIZED DRUG - OTHER] PO (14:23)
[2021-01-16] MEDS ORDERED: GLUC-235 PO (14:23)
[2021-01-16] MEDS ORDERED: MAGN125C PO ×2 (14:23)
[2021-01-16] MEDS ORDERED: CALC1CAP5 PO (14:23)
[2021-01-16] MEDS ORDERED: [UNRECOGNIZED DRUG - OTHER] PO ×2 (14:23)
[2021-01-16] MEDS ORDERED: NAPR220C61 PO (14:23)
[2021-01-16] MEDS ORDERED: FLUT9.9S NS (14:23)
[2021-01-16] MEDS ORDERED: GLUC1CAP37 PO (14:23)
[2021-01-16] MEDS: D5 1/2 NS W/KCL 20 MEQ/L 1,000 ML IV SCH (15:10)
--- NOTE | 2021-01-16 17:27 | Progress Note ---
Standard Progress Note Progress Notes/Assess & Plan Date Seen by a Provider: January 16, 2021 Time Seen by a Provider: 17:30 Progress/Assessment & Plan ENT-Rafat doing well post-op minimal drainage incision dry flat and intact diet as andre itzel if needed plan on drian out in am and then home await final path report which should be back next tuesday or tue Final Diagnosis right submandibular mass SEHNA ABARCA MD January 16, 2021 17:26
[2021-01-16] MEDS ORDERED: PATIENT MAY USE OWN MEDS, ALL MC SCH (18:00)
[2021-01-16] MEDS ORDERED: METHYLSULFONYLMETHANE PO SCH (21:00)
[2021-01-16] MEDS ORDERED: amLODIPine 5 MG (NORVASC) TAB PO SCH (21:00)
[2021-01-16] MEDS ORDERED: CALCIUM PO SCH (21:00)
[2021-01-16] MEDS ORDERED: MAGNESIUM CITRATE PO SCH (21:00)
[2021-01-16] MEDS ORDERED: OLMESARTAN 40 MG TABLET PO SCH (21:00)
[2021-01-16] MEDS ORDERED: [UNRECOGNIZED DRUG - OTHER] PO SCH (21:00)
[2021-01-16] MEDS ORDERED: CHONDROITIN PO SCH (21:00)
[2021-01-16] MEDS ORDERED: VIT D PO SCH (21:00)
[2021-01-16] MEDS ORDERED: GLUCOSAMINE PO SCH (21:00)
[2021-01-17] VITALS: BP 122/67
[2021-01-17 04:00] VITALS: BP 131/39
[2021-01-17] MEDS: D5 1/2 NS W/KCL 20 MEQ/L 1,000 ML IV SCH (04:00)
[2021-01-17] MEDS: HYDROcodone/APAP 5 MG/325 MG (LORTAB) TAB PO PRN ×2 (04:07→09:24)
--- NOTE | 2021-01-17 06:10 | Progress Note ---
Standard Progress Note Progress Notes/Assess & Plan Date Seen by a Provider: January 17, 2021 Time Seen by a Provider: 06:00 Progress/Assessment & Plan Neda doing well post-op minimal drainage incision dry flat and intact diet as andre itzel if needed plan on drian out in am and then home await final path report which should be back next tuesday or tue Neda drain out incision -looks good will discharge after breakfast will call with return apt for review of patholoyg and suture removal discharge prescription in chart SHENA ABARCA MD January 17, 2021 06:10
[2021-01-17 08:38] VITALS: BP 123/64
[2021-01-17] MEDS ORDERED: MAGNESIUM CITRATE PO SCH (09:00)
[2021-01-17] MEDS ORDERED: GLUCOSAMINE PO SCH (09:00)
[2021-01-17] MEDS ORDERED: [UNRECOGNIZED DRUG - OTHER] PO SCH (09:00)
[2021-01-17] MEDS ORDERED: FLUTICASONE NASAL SPRAY (FLONASE) 16 GM BTL NS SCH (09:00)
[2021-01-17] MEDS ORDERED: NON-FORMULARY MEDICATION 1 EA EA (Diphenhydramine HCl (Benadryl) 25 MG) PO SCH (09:00)
[2021-01-17] MEDS ORDERED: NON-FORMULARY MEDICATION 1 EA EA (Fluticasone Propionate (Flonase Allergy Relief) 1 SPRAY) NS SCH (09:00)
[2021-01-17] MEDS ORDERED: MAGNESIUM CITRATE 125 MG PO SCH (09:00)
[2021-01-17] MEDS ORDERED: CHONDROITIN PO SCH (09:00)
[2021-01-17] MEDS ORDERED: [UNRECOGNIZED DRUG - OTHER] PO SCH (09:00)
[2021-01-17] MEDS ORDERED: METHYLSULFONYLMETHANE PO SCH (09:00)
[2021-01-17] MEDS ORDERED: diphenhydrAMINE 25 MG TAB (BENADRYL) PO SCH (09:00)
== END 2021-01-17 09:56 | disposition home or self-care (01) ==
LOC: SDC 07:32 → CSD 12:19 → SDC 01-17 09:56
PROVIDERS: ATTEND Otolaryngology Otolaryngology/Facial Plastic Surgery
DX: C08.0 Malignant neoplasm of submandibular gland (principal); I10 Essential (primary) hypertension; K21.9 Gastro-esophageal reflux disease without esophagitis; E78.5 Hyperlipidemia, unspecified; G47.00 Insomnia, unspecified; F32.9 Major depressive disorder, single episode, unspecified; Z87.891 Personal history of nicotine dependence; Z79.899 Other long term (current) drug therapy
CPT/HCPCS: 87081; 88307; 88331

== ENCOUNTER → 2021-02-13 | Outpatient (CLI) | payer MEDICARE ==
[~2021-02-13] MED LIST changes: +CALC1CAP5 PO; +GLUC-235 PO; +GLUC1CAP37 PO; +MAGN125C PO; +NAPR220C61 PO; +[UNRECOGNIZED DRUG - OTHER] PO; +[UNRECOGNIZED DRUG - OTHER] PO
--- NOTE | 2021-02-13 16:47 | Diagnostic Imaging Report ---
EXAMINATION: CT chest without contrast. TECHNIQUE: Multiple contiguous axial images were obtained through the chest without the use of intravenous contrast. All CT scans use one or more of the following dose optimizing techniques: automated exposure control, MA and/or KvP adjustment based on patient size and exam type or iterative reconstruction. HISTORY: Adenoid cystic carcinoma. COMPARISON: None available. FINDINGS: There is no edema or pneumonia. No pleural effusion. No pneumothorax. No suspicious nodules. There is no axillary or supraclavicular lymphadenopathy. There is no mediastinal lymphadenopathy. Heart size is normal. There are no coronary artery calcifications. No pericardial effusion. Aorta is normal in caliber. Limited views of the upper abdomen show a calcified mass measuring 2.6 x 1.9 cm near the root of the mesentery and adjacent to the pancreas. There is a 3.9 x 2.8 cm low-attenuating lesion in the gastrohepatic ligament, potentially within the left hemiliver (series 2, image 110). There are no suspicious osseous lesions. IMPRESSION: 1. No metastatic disease in the chest. 2. Indeterminate calcified mass near the root of the mesentery and adjacent to the pancreas. Pancreas protocol abdomen and pelvis CT is recommended. 3. Indeterminate fluid-attenuation lesion potentially within the left hemiliver or gastrohepatic ligament. This can be better evaluated on a dedicated abdomen and pelvis CT as well. Dictated by: Dictated on workstation # [id number]
== END ==
LOC: RAD 11:15
PROVIDERS: ATTEND Nurse Practitioner Family
DX: C08.0 Malignant neoplasm of submandibular gland (principal)
CPT/HCPCS: 71250

== ENCOUNTER → 2021-02-17 | Outpatient (CLI) | payer MEDICARE ==
[~2021-02-17] MED LIST changes: +HOLD METFORMIN - RECEIVED CONTRAST 20 ML VIAL IV SCH; +IOHEXOL 350 MG/ML 100 ML (OMNIPAQUE 350) VIAL IV ONE; +NS 100 ML (IVPB) BAG IV ONE
--- NOTE | 2021-02-17 13:41 | Diagnostic Imaging Report ---
EXAMINATION: CT abdomen and pelvis with and without intravenous contrast. TECHNIQUE: Precontrast acquisitions were acquired through the abdomen and pelvis. Multiple contiguous axial images were obtained through the abdomen and pelvis after the administration of intravenous contrast. All CT scans use one or more of the following dose optimizing techniques: automated exposure control, MA and/or KvP adjustment based on patient size and exam type or iterative reconstruction. HISTORY: History of pancreatitis. History of adenoid cystic carcinoma. Followup. COMPARISON: 02/13/2021. FINDINGS: The heart is unremarkable. The included lung bases are clear. Stable partially calcified mass adjacent to the head of the pancreas measuring 2.6 x 1.9 cm. No associated pancreatic ductal dilation or pancreatic atrophy. No peripancreatic inflammatory changes. Redemonstration of the hypoattenuating focus which appears outside the liver and within the gastrohepatic ligament. Nonenhancing cysts are visualized scattered in the liver. A likely flash filling hemangioma is seen in the right hepatic lobe. No suspicious hepatic lesions are seen. The gallbladder is surgically absent. No intra or extrahepatic biliary dilation. The portal vein is patent. The spleen, adrenal glands, and kidneys have a normal appearance. There is no pathologically enlarged mesenteric or retroperitoneal adenopathy. The bowel loops are nondilated. The appendix is visualized in the right lower quadrant and has a normal appearance. Scattered diverticula are present without evidence of acute diverticulitis. There is no free fluid or free air. No acute osseous abnormalities. A fat-containing periumbilical hernia is present. Ureters and bladder are grossly normal. There is no free air, loculated collection, or adenopathy in the pelvis. IMPRESSION: 1. Redemonstration of the partially calcified mass adjacent to the head of the pancreas. Findings are favored to represent sequelae of chronic pancreatitis given the patient history; however, a partially calcified pancreatic neoplasm is not completely excluded and followup is recommended in 6-[address] or MRI of the abdomen following pancreatic protocol. 2. Stable hypoattenuating focus within the gastrohepatic ligament. This is indeterminate and attention on followup is recommended. Dictated by: Dictated on workstation # [id number]
== END ==
LOC: RAD 11:15
PROVIDERS: ATTEND Nurse Practitioner Family
DX: R91.8 Other nonspecific abnormal finding of lung field (principal); K86.9 Disease of pancreas, unspecified; Z85.858 Personal history of malignant neoplasm of other endocrine glands
CPT/HCPCS: 74178

== ENCOUNTER 2021-05-04 09:50 | Outpatient (RCR) | payer MEDICARE ==
[2021-02-17 11:43] LABS: BUN/CREATININE RATIO 15; CREATININE SERUM 0.85 MG/DL (0.60-1.30); GFR ESTIMATED > 60
[~2021-05-04 09:50] MED LIST changes: -HOLD METFORMIN - RECEIVED CONTRAST 20 ML VIAL IV SCH; -IOHEXOL 350 MG/ML 100 ML (OMNIPAQUE 350) VIAL IV ONE; -NS 100 ML (IVPB) BAG IV ONE
== END 2021-05-10 | disposition home or self-care (01) ==
LOC: ONC 09:50
PROVIDERS: ATTEND Radiology Radiation Oncology
DX: Z51.0 Encounter for antineoplastic radiation therapy (principal); C08.0 Malignant neoplasm of submandibular gland; I10 Essential (primary) hypertension; E78.00 Pure hypercholesterolemia, unspecified; Z85.858 Personal history of malignant neoplasm of other endocrine glands; Z80.42 Family history of malignant neoplasm of prostate; Z80.0 Family history of malignant neoplasm of digestive organs
CPT/HCPCS: 77290; 77300; 77301; 77334; 77336; 77338; 77386; 82565; 84520; 99204

== ENCOUNTER → 2021-06-25 | Outpatient (CLI) | payer MEDICARE ==
--- NOTE | 2021-06-25 11:51 | Diagnostic Imaging Report ---
PROCEDURE: US Hepatic (Liver). TECHNIQUE: Multiple real-time grayscale images were obtained over the right upper quadrant in various projections. INDICATION: Elevated bilirubin. COMPARISON: CT abdomen and pelvis from 02/17/2021 FINDINGS: The liver is normal in size and echogenicity. A solid hyperechoic 0.9 x 0.8 cm lesion in the right hepatic lobe corresponds to a hemangioma seen on prior MRI. No concerning hepatic mass. The main portal vein is patent with antegrade flow. Cholecystectomy. No biliary duct dilatation. Common bile duct is not visualized as it is obscured by overlying bowel gas. Pancreas is obscured by overlying bowel gas. The right kidney is normal in size. No hydronephrosis, shadowing calculi, or suspicious mass lesion. IMPRESSION: 1. Cholecystectomy without intra-hepatic biliary duct dilatation. Common bile duct is obscured by overlying bowel gas. 2. Subcentimeter hemangioma right hepatic lobe is stable. No features of cirrhosis. Dictated by: Dictated on workstation # [id number]
== END ==
LOC: RAD 09:00
PROVIDERS: ATTEND Family Medicine
DX: D18.09 Hemangioma of other sites (principal); E80.7 Disorder of bilirubin metabolism, unspecified; Z90.49 Acquired absence of other specified parts of digestive tract
CPT/HCPCS: 76705

== ENCOUNTER → 2021-07-02 | Outpatient (CLI) | payer MEDICARE | LOC: ONC 10:30 | PROVIDERS: ATTEND Radiology Radiation Oncology | DX: E66.9 Obesity, unspecified (principal); Z84.81 Family history of carrier of genetic disease | CPT/HCPCS: 99213 ==

== ENCOUNTER → 2021-07-13 | Outpatient (CLI) | payer MEDICARE | LOC: EDSTATUS 05-11 14:22 → ONC 13:54 | PROVIDERS: ATTEND Nurse Practitioner Adult Health | DX: C08.0 Malignant neoplasm of submandibular gland (principal); K21.9 Gastro-esophageal reflux disease without esophagitis; I10 Essential (primary) hypertension; E78.00 Pure hypercholesterolemia, unspecified; Z98.890 Other specified postprocedural states | CPT/HCPCS: 99214 ==

== ENCOUNTER → 2021-08-04 | Outpatient (CLI) | payer MEDICARE ==
[~2021-08-04] MED LIST changes: +CATHETER FLUSH 10 ML SYR IV PRN; +HOLD METFORMIN - RECEIVED CONTRAST 20 ML VIAL IV SCH; +IOHEXOL 350 MG/ML 100 ML (OMNIPAQUE 350) VIAL IV ONE; +NS 100 ML (IVPB) BAG IV ONE
[2021-08-04 08:21] LABS: CREATININE SERUM 0.82 MG/DL (0.60-1.30); FREE T4 (FREE THYROXINE) 0.98 NG/DL (0.70-1.48)
--- NOTE | 2021-08-04 09:26 | Diagnostic Imaging Report ---
PROCEDURE: CT neck soft tissue with contrast. TECHNIQUE: Multiple contiguous axial images were obtained through the neck after the administration of contrast. Auto Exposure Controls were utilized during the CT exam to meet ALARA standards for radiation dose reduction. INDICATION: History of adenoid cystic carcinoma. COMPARISON: MRI neck and brain without and with IV contrast 10/31/2020. FINDINGS: Since prior exams, the enhancing mass in the right submandibular region appears to have been surgically resected. No residual enhancing mass is identified. There is a probable lymph node along the anterior margin of the postoperative changes measuring 0.9 x 0.7 cm. No lymphadenopathy by criteria. The floor of the mouth, tongue base, epiglottis and retropharyngeal space are unremarkable. No suspicious mass or enhancement in the pharynx or larynx. The remaining major salivary glands are normal. Nonspecific hypoenhancing nodule in the left thyroid measures up to 1.0 cm. The major vessels in the neck are grossly patent. Lung apices are clear. No acute osseous findings. Moderate spondylotic changes in the cervical spine are greatest at C5-C7. Probable mucous retention cysts in the right maxillary sinus. Mild mucosal thickening in the left maxillary sinus. Partially calcified extra-axial mass measuring up to 1.0 cm anterior to the sella consistent with benign meningioma is stable. The mastoids are clear. The skull base is intact with no enlargement of the foramina. IMPRESSION: 1. Interval postoperative changes in the right submandibular region including resection of the right submandibular gland and the previously seen enhancing mass. 2. There is a subcentimeter lymph node along the anterior margin of the postoperative changes. This should serve as a focus attention on subsequent follow-ups. No lymphadenopathy by criteria. 3. No findings suspicious for perineural involvement. Dictated by: Dictated on workstation # [id number]
--- NOTE | 2021-08-04 12:56 | Diagnostic Imaging Report ---
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 TECHNIQUE: The serum blood glucose level at the time of injection was 110 mg/dL. The patient was administered 14.1 mCi of F-18 FDG intravenously in the right antecubital location and PET imaging was performed from the top of the skull to the mid thighs. A noncontrast CT was also performed for attenuation correction and anatomic correlation. COMPARISON: No prior PET/CT study is available for comparison. FINDINGS: There is symmetric activity throughout the brain. Postop changes with surgical resection of the right submandibular gland and mass are noted. No residual or recurrent mass at the surgical bed is identified. No suspicious hypermetabolism is seen. No hypermetabolic neck lymph nodes are identified. No mediastinal or hilar hypermetabolism is identified. No pulmonary parenchymal hypermetabolism is identified. There is physiologic activity throughout the GI and tracts of the abdomen and pelvis. No suspicious hypermetabolism is identified. IMPRESSION: Unremarkable PET/CT study. There are postop changes of resection of the right submandibular gland and mass. No suspicious hypermetabolism is seen to suggest focal recurrence or metastatic disease. Dictated by: Dictated on workstation # [id number]
== END ==
LOC: RAD 08:15
PROVIDERS: ATTEND Otolaryngology Otolaryngology/Facial Plastic Surgery
DX: Z85.858 Personal history of malignant neoplasm of other endocrine glands (principal); Z98.890 Other specified postprocedural states
CPT/HCPCS: 70491; 78815; 82565; 84439; 84443; 84520; A9552; 36415

== ENCOUNTER 2021-08-19 09:45 | Outpatient (RCR) | payer MEDICARE ==
[~2021-08-19 09:45] MED LIST changes: -CATHETER FLUSH 10 ML SYR IV PRN; -HOLD METFORMIN - RECEIVED CONTRAST 20 ML VIAL IV SCH; -IOHEXOL 350 MG/ML 100 ML (OMNIPAQUE 350) VIAL IV ONE; -NS 100 ML (IVPB) BAG IV ONE
== END 2021-08-25 08:46 | disposition home or self-care (01) ==
PROVIDERS: ATTEND Family Medicine
DX: M25.511 Pain in right shoulder (principal)

== ENCOUNTER → 2021-09-28 | Outpatient (RCR) | payer MEDICARE | END | disposition home or self-care (01) | PROVIDERS: ATTEND Orthopaedic Surgery | DX: Z47.1 Aftercare following joint replacement surgery (principal); Z96.652 Presence of left artificial knee joint; I10 Essential (primary) hypertension ==

== ENCOUNTER → 2021-10-05 | Outpatient (CLI) | payer MEDICARE ==
--- NOTE | 2021-10-05 09:49 | Diagnostic Imaging Report ---
INDICATION: Routine screening. COMPARISON: 09/30/2020 and 09/18/2019. TECHNIQUE: 2D and 3D bilateral screening mammography was performed with CAD. FINDINGS: Both breasts are heterogeneously dense, limiting the sensitivity of mammography. A benign-appearing nodule in the medial left breast at posterior depth appears stable. No spiculated mass or malignant-appearing microcalcifications are seen. There are benign calcifications present. The axillae are unremarkable. IMPRESSION: No mammographic features suspicious for malignancy are identified. ACR BI-RADS Category 2: Benign findings. Result letter will be mailed to the patient. Note: At least 10% of breast cancer is not imaged by mammography. Dictated by: Dictated on workstation # [id number]
== END ==
LOC: RAD 08:45
PROVIDERS: ATTEND Obstetrics & Gynecology
DX: Z12.31 Encounter for screening mammogram for malignant neoplasm of breast (principal)
CPT/HCPCS: 77063; 77067

== ENCOUNTER 2021-10-23 09:55 | Outpatient (RCR) | payer MEDICARE | END 2021-10-23 13:30 | disposition home or self-care (01) | PROVIDERS: ATTEND Orthopaedic Surgery | DX: Z47.1 Aftercare following joint replacement surgery (principal); I10 Essential (primary) hypertension; Z96.652 Presence of left artificial knee joint ==

== ENCOUNTER → 2021-11-11 | Outpatient (CLI) | payer MEDICARE ==
[~2021-11-11] MED LIST changes: +GADOTERATE 0.5 MMOL/ML (CLARISCAN) 20 ML VIAL IV ONE
--- NOTE | 2021-11-11 09:15 | Diagnostic Imaging Report ---
PROCEDURE: US Thyroid. TECHNIQUE: Multiple real-time grayscale images were obtained of the thyroid in various projections. INDICATION: Thyroid nodules. History of salivary gland cancer. FINDINGS: Right lobe measures 4.4 x 2.1 x 1.8 cm. Left lobe measures 4.4 x 1.4 x 1.8 cm. Isthmus is 3 mm. There is a solid nodule which is oval and well-circumscribed in the left lobe measuring approximately 1.3 x 0.9 x 1.1 cm. This consisted of isoechoic to hypoechoic components. There are no calcifications. There are 2 simple cysts in the right lobe. IMPRESSION: Solitary solid nodule in the left lobe which is well-circumscribed heterogeneous with predominantly isoechoic and mildly hypoechoic components. TI-RADS 3. Dictated by: Dictated on workstation # [id number]
--- NOTE | 2021-11-11 10:21 | Diagnostic Imaging Report ---
Clinical Indication: Followup meningioma of the brain. Exam: MRI of the brain performed without and with 20 cc of Clariscan IV contrast. Sequences include axial DWI, ADC map, axial gradient echo, axial T2, axial FLAIR, axial T1, axial T1 post IV contrast, coronal T1 fat-sat post IV contrast, and sagittal T1 post IV contrast. Comparison: MRI of the brain with and without contrast dated 10/31/2020. Findings: There is no significant change to the enhancing dural based mass along the right of midline anterior skull base. This mass measures 10 mm x 8 mm x 7 mm (AP x Trans x CC). There is no other intracranial enhancing mass seen. There is no parenchymal abnormality involving the basilar right frontal lobe region adjacent to the mass. There is stable appearance of the brain parenchyma with multiple focal areas of high T2 signal involving the white matter both cerebral hemispheres, likely representing chronic small vessel ischemic disease. Stable small areas of chronic ischemic changes involving the left cerebellum. The [place] vascular structures show no gross abnormality as visualized. The pituitary gland, sella, and suprasellar regions are unremarkable as visualized. Extracranial soft tissues, skull, and orbits are unremarkable. There are multiple mucous retention cysts within the right maxillary sinus and left maxillary sinus which has slightly decreased in interim. Right maxillary sinus affected more than left. There is minimal mucosal thickening involving ethmoid sinus. Mastoid air cells are clear. 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 2: The remainder of the brain parenchymal findings are stable. Dictated by: Dictated on workstation # [id number]
== END ==
LOC: RAD 08:00
PROVIDERS: ATTEND Otolaryngology Otolaryngology/Facial Plastic Surgery
DX: E04.1 Nontoxic single thyroid nodule (principal); D32.0 Benign neoplasm of cerebral meninges; Z85.818 Personal history of malignant neoplasm of other sites of lip, oral cavity, and pharynx
CPT/HCPCS: 70553; 76536

== ENCOUNTER 2022-01-07 05:37 | Outpatient (CLI) | payer MEDICARE ==
[~2022-01-07] VITALS: Ht 175.3 cm; Wt 102.1 kg
[~2022-01-07 05:37] MED LIST changes: -CELE-63 PO; -ERGO1250 PO; -ESTR10TA9 VG; -GABA-490 PO; -IBUP-1773 PO; -LACT1CAP62 PO; -MAGN400T7 PO; -MULT-593 PO; -PANT20TA18 PO
[2022-01-07] MEDS ORDERED: IBUP-1773 PO (09:14)
[2022-01-07] MEDS ORDERED: PANT20TA18 PO (09:14)
[2022-01-07] MEDS ORDERED: MAGN400T7 PO (09:14)
[2022-01-07] MEDS ORDERED: LACT1CAP62 PO (09:14)
[2022-01-07] MEDS ORDERED: MULT-593 PO (09:14)
[2022-01-07] MEDS ORDERED: GABA-490 PO (09:14)
[2022-01-07] MEDS ORDERED: ESTR10TA9 VG (09:14)
[2022-01-07] MEDS ORDERED: ERGO1250 PO (09:14)
[2022-01-07] MEDS ORDERED: CELE-63 PO (09:14)
== END 2022-01-07 12:25 | disposition home or self-care (01) ==
LOC: PREOP 05:37
PROVIDERS: ATTEND Surgery
DX: Z01.818 Encounter for other preprocedural examination (principal)

== ENCOUNTER → 2022-01-07 | Outpatient (CLI) | payer MEDICARE ==
[~2022-01-07] MED LIST changes: +CELE-63 PO; +ERGO1250 PO; +ESTR10TA9 VG; +GABA-490 PO; -GADOTERATE 0.5 MMOL/ML (CLARISCAN) 20 ML VIAL IV ONE; +IBUP-1773 PO; +LACT1CAP62 PO; +MAGN400T7 PO; +MULT-593 PO; +PANT20TA18 PO
== END ==
LOC: ONC 09:50
PROVIDERS: ATTEND Radiology Radiation Oncology
DX: C08.0 Malignant neoplasm of submandibular gland (principal)
CPT/HCPCS: 99213

== ENCOUNTER → 2022-01-18 | Outpatient (CLI) | payer MEDICARE ==
[~2022-01-18] MED LIST changes: +CATHETER FLUSH 10 ML SYR IV PRN; +CELE-63 PO; +ERGO1250 PO; +ESTR10TA9 VG; +GABA-490 PO; +HOLD METFORMIN - RECEIVED CONTRAST 20 ML VIAL IV SCH; +IBUP-1773 PO; +IOHEXOL 350 MG/ML 100 ML (OMNIPAQUE 350) VIAL IV ONE; +LACT1CAP62 PO; +MAGN400T7 PO; +MULT-593 PO; +NS 100 ML (IVPB) BAG IV ONE; +PANT20TA18 PO
[2022-01-18 08:12] LABS: CREATININE SERUM 0.92 MG/DL (0.60-1.30)
--- NOTE | 2022-01-18 13:27 | Diagnostic Imaging Report ---
CLINICAL INDICATION: Six-month follow-up for submandibular gland cancer. Patient not on treatment. Salivary gland removed from right side. EXAM: CT scan of neck soft tissue with 75 cc of Omnipaque 350 IV contrast. Sagittal and coronal reformatted images are created. Auto Exposure Controls were utilized during the CT exam to meet ALARA standards for radiation dose reduction. COMPARISON: CT scan of the neck soft tissue dated 08/07/2021. MRI of the brain with and without contrast dated 11/11/2021. FINDINGS: Again seen postop changes with surgical resection of the right submandibular gland. There is stable architectural distortion and scarring in right submandibular resection region. Previously seen small lymph node in the region has decreased in size and measures 7 mm x 5 mm compared to the prior study measured at 9 mm x 7 mm. Again seen multiple nodules involving the right and left thyroid lobe, the largest one measuring 12 mm on the left side is stable. There is no developing mass seen. There is no lymphadenopathy. Previously seen mild soft tissue swelling of the oropharynx and supraglottic larynx has resolved. Calcified meningioma along the right posterior planum sphenoidale is again noted which measures roughly 10 mm in transverse dimensions and 12 mm in AP dimensions. Cervical spine degenerative spurs again seen. Remainder of the visualized intracranial structures are unremarkable. There is moderate mucosal thickening involving the right maxillary sinus and mild mucosal thickening involving the left maxillary sinus. Visualized upper lung garcia are clear. IMPRESSION: 1: Again seen postop changes of resection of the right submandibular gland and stable architectural distortion and scarring. There is no developing mass. Previously seen lymph node/nodular area in the region has decreased in size in the interim. There is no evidence of developing mass or lymphadenopathy. 2: Stable planum sphenoidale meningioma which is just right of midline. 3: Stable thyroid lobe nodules. Dictated by: Dictated on workstation # [id number]
--- NOTE | 2022-01-19 08:47 | Diagnostic Imaging Report ---
INDICATION: Right submandibular gland cancer, restaging. Serum blood glucose level at time of injection is 107 mg/dL. Patient was administered 12.6 mCi F-18 FDG intravenously in the right antecubital location and whole body PET imaging was performed. Noncontrast CT was also performed for attenuation correction and anatomic correlation. Correlation is made with prior PET CT study from 08/04/[address] neck study from 01/18/2022. There is symmetric activity throughout the brain. Soft tissues of the neck again demonstrate postoperative changes with resection of right submandibular gland. No recurrent mass is identified. No abnormal hypermetabolism is identified. No mediastinal or hilar hypermetabolism is seen. The pulmonary parenchyma is unremarkable. Normal physiologic activity throughout the gastrointestinal and genitourinary tract is noted. There does appear to be a midline fat-containing ventral hernia in the abdomen. A bilateral lower extremities demonstrate postoperative changes left total knee arthroplasty. No abnormal hypermetabolism is identified. IMPRESSION: Stable unremarkable whole-body PET/CT study. No suspicious areas of hypermetabolism or metastatic disease is identified. Dictated by: Dictated on workstation # [id number]
== END ==
LOC: RAD 07:45
PROVIDERS: ATTEND Otolaryngology Otolaryngology/Facial Plastic Surgery
DX: D32.0 Benign neoplasm of cerebral meninges (principal); E04.2 Nontoxic multinodular goiter; Z90.89 Acquired absence of other organs; Z85.818 Personal history of malignant neoplasm of other sites of lip, oral cavity, and pharynx
CPT/HCPCS: 70491; 78816; 82565; 84520; A9552; 36415

== ENCOUNTER 2022-01-19 07:39 | Day surgery (SDC) | payer MEDICARE ==
[~2022-01-19] VITALS: Ht 175.3 cm; Wt 102.1 kg
[~2022-01-19 07:39] MED LIST changes: -CATHETER FLUSH 10 ML SYR IV PRN; -HOLD METFORMIN - RECEIVED CONTRAST 20 ML VIAL IV SCH; -IOHEXOL 350 MG/ML 100 ML (OMNIPAQUE 350) VIAL IV ONE; -NS 100 ML (IVPB) BAG IV ONE
[2022-01-19] MEDS ORDERED: LACTATED RINGERS 1,000 ML IV STA (07:43)
[2022-01-19] MEDS ORDERED: HURRICAINE EXT TUBE (BENZOCAINE) XX PRN (07:45)
[2022-01-19 07:56] VITALS: BP 124/75
[2022-01-19] MEDS ORDERED: PROPOFOL INJECTION 50 ML IV ONE (08:53)
[2022-01-19] MEDS ORDERED: MIDAZOLAM 2 MG/2 ML (VERSED) VIAL ONE (08:53)
--- NOTE | 2022-01-19 09:43 | Progress Note-Post Operative ---
Post-Operative Progess Note Surgeon (s)/Studio Model (s) Surgeon HONORIO ANDERS DO Studio Model: na Pre-Operative Diagnosis Gerd, Li Fraumeni mutation Post-Operative Diagnosis hiatal hernia, colon polyps Procedure & Operative Findings Date of Procedure 01/19/22 Procedure Performed/Findings egd c biopsies, colonoscopy c hot bx polypectomy x 2 Anesthesia Type per dairy science teacher Estimated Blood Loss Estimated blood loss (mL): none Specimens/Packing Specimens Removed antrum, ge, colon polyps HONORIO ANDERS DO January 19, 2022 09:43
[2022-01-19 09:44] VITALS: BP 100/53
--- NOTE | 2022-01-19 09:44 | Discharge Inst-Simple/Standard ---
Discharge Inst-Standard Patient Instructions/Follow Up Plan of Care/Instructions/FU: 2 weeks [place] Activity as Tolerated: Yes Discharge Diet: Regular Diet HONORIO ANDERS DO January 19, 2022 09:44
[2022-01-19 09:49] VITALS: BP 99/56
[2022-01-19 09:55] VITALS: BP 99/56
[2022-01-19 10:15] VITALS: BP 99/56
--- NOTE | 2022-01-19 12:36 | Anesthesia-General Post-Op ---
MAC Patient Condition Mental Status/LOC: Same as Preop Cardiovascular: Satisfactory Nausea/Vomiting: Absent Respiratory: Satisfactory Pain: Controlled Complications: Absent Post Op Complications Complications None Follow Up Care/Instructions Patient Instructions None needed. Anesthesiology Discharge Order Discharge Order Patient is doing well, no complaints, stable vital signs, no apparent adverse anesthesia problems. No complications reported per nursing. REJI GARCIA CRNA January 19, 2022 12:36
--- NOTE | 2022-01-19 16:00 | OPERATIVE REPORT ---
DATE OF SERVICE: 01/19/2022 PREOPERATIVE DIAGNOSES: Gastroesophageal reflux disease, Li Fraumeni mutation. POSTOPERATIVE DIAGNOSES: Hiatal hernia, colon polyps. PROCEDURE: EGD with biopsies, colonoscopy with hot biopsy polypectomy x2. SURGEON: Jeovanny Floyd DO ANESTHESIA: Per MANAGER ERP. ESTIMATED BLOOD LOSS: None. COMPLICATIONS: None. INDICATIONS: The patient is a 66-year-old female who found to have Li Fraumeni mutation. The patient also has GERD symptoms. She understands risks and benefits of procedure and wishes to proceed. Consent was signed in the chart. DESCRIPTION OF PROCEDURE: The patient was taken to the endoscopy suite, placed in left lateral recumbent position. Timeout was performed. Scope was inserted in mouth, down the esophagus, stomach and into the duodenum without difficulty. There were no polyps, masses or ulcerations in the duodenum. Scope was slowly retracted back to stomach where it was further insufflated. No polyps, masses or ulcerations. Biopsy of the antrum was obtained. Scope was retroflexed noting hiatal hernia, no other pathology. Scope was returned to its normal position, slowly withdrawn to distal esophagus. No polyps, masses or ulcerations. Biopsy of GE junction was obtained. Scope was then slowly retracted back until completely removed, noting no other pathology. Digital rectal exam was performed. No palpable polyps, masses or ulcerations. Scope was inserted in the rectum, advanced all the way to cecum with minimal difficulty. Prep was adequate. Scope was slowly retracted back into the cecum, a small polyp was present, which hot biopsy polypectomy was performed. Scope was then continuously retracted back. No polyps, masses or ulcerations within the ascending, transverse, descending colon. In the sigmoid, small polyp was present, which hot biopsy polypectomy was performed. Scope was then continuously retracted back into the rectum where it was also retroflexed noting no other pathology. Scope was returned to its normal position, slowly withdrawn until completely removed. The patient tolerated the procedure well without any complications. She was taken to recovery room in stable condition. RECOMMENDATIONS: Due to the Li Fraumeni mutation, would recommend repeat colonoscopy in 2 years. Any issues before that be seen at that time. The patient will follow up in 2 weeks to discuss pathology results. Job ID: [id number] DocumentID: [id number] Dictated Date: 01/19/2022 09:47:51 Packer Inspector Date: 01/19/2022 14:16:15 Dictated By: DO GISEL BURDICK
== END 2022-01-19 10:17 | disposition home or self-care (01) ==
LOC: ENDO 07:39
PROVIDERS: ATTEND Surgery
DX: Z12.11 Encounter for screening for malignant neoplasm of colon (principal); K29.50 Unspecified chronic gastritis without bleeding; K21.00 Gastro-esophageal reflux disease with esophagitis, without bleeding; K44.9 Diaphragmatic hernia without obstruction or gangrene; K31.89 Other diseases of stomach and duodenum; D12.0 Benign neoplasm of cecum; K63.5 Polyp of colon; E66.9 Obesity, unspecified; Z68.33 Body mass index [BMI] 33.0-33.9, adult; Z15.01 Genetic susceptibility to malignant neoplasm of breast; Z85.818 Personal history of malignant neoplasm of other sites of lip, oral cavity, and pharynx; Z80.9 Family history of malignant neoplasm, unspecified
CPT/HCPCS: 88305

== ENCOUNTER → 2022-07-01 | Outpatient (CLI) | payer MEDICARE ==
[~2022-07-01] MED LIST changes: -OLME40TA12 PO; +OLME40TA70 PO
== END ==
LOC: ONC 10:01
PROVIDERS: ATTEND Radiology Radiation Oncology
DX: D12.6 Benign neoplasm of colon, unspecified (principal); K20.90 Esophagitis, unspecified without bleeding; K44.9 Diaphragmatic hernia without obstruction or gangrene; Z15.01 Genetic susceptibility to malignant neoplasm of breast; E66.9 Obesity, unspecified
CPT/HCPCS: 99213

== ENCOUNTER → 2022-07-26 | Outpatient (CLI) | payer MEDICARE ==
[~2022-07-26] MED LIST changes: +CATHETER FLUSH 10 ML SYR IV PRN; +HOLD METFORMIN - RECEIVED CONTRAST 20 ML VIAL IV SCH; +IOHEXOL 350 MG/ML 100 ML (OMNIPAQUE 350) VIAL IV ONE; +NS 100 ML (IVPB) BAG IV ONE
[2022-07-26 08:26] LABS: CREATININE SERUM 0.86 MG/DL (0.60-1.30)
--- NOTE | 2022-07-26 14:24 | Diagnostic Imaging Report ---
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 Serum blood glucose level time injection is 129 mg/dL. Patient was administered 12.0 mCi F-18 FDG intravenously in the right antecubital location and imaging was performed from the top of skull to mid thighs. Noncontrast CT was also performed for attenuation correction and anatomic correlation. Correlation is made with prior PET/CT study from 01/18/2022. There is symmetric activity throughout the brain. Postoperative changes to the right neck again noted where there has been resection of the right submandibular gland. No focal recurrence is identified. No suspicious area of hypermetabolism is identified. No hypermetabolic lymphadenopathy is identified. No mediastinal or hilar hypermetabolism is identified. There is a calcified granuloma left upper lobe. No pulmonary masses are detected. The abdomen and pelvis demonstrate physiologic activity throughout the gastrointestinal and genitourinary tract. No suspicious hypermetabolism is identified. There is a fat-containing umbilical hernia. IMPRESSION: Continued stable unremarkable PET/CT study when compared with exam from 01/18/2022. No focal recurrence or evidence of metastatic disease is identified. Dictated on workstation # [id number]
--- NOTE | 2022-07-26 15:45 | Diagnostic Imaging Report ---
PROCEDURE: CT neck soft tissue with contrast. TECHNIQUE: Multiple contiguous axial images were obtained through the neck after the administration of contrast. Auto Exposure Controls were utilized during the CT exam to meet ALARA standards for radiation dose reduction. INDICATION: Adenocystic carcinoma COMPARISON: 01/18/2022. FINDINGS: Stable postoperative changes in the right submandibular gland resection. There is no residual or recurrent mass in this region. Left submandibular gland is normal. The bilateral parotid glands are normal in appearance. No cervical lymphadenopathy has developed. Airways widely patent. Stable subcentimeter cyst within the left thyroid lobe. Stable calcified meningioma in the anterior cranial fossa just to the right of midline. No new space-occupying mass within the visualized portion of the brain. Mucosal retention cysts in the bilateral maxillary sinuses are stable. Orbits are normal. IMPRESSION: 1. Stable postoperative changes of right submandibular gland resection. No recurrent or residual mass. 2. No cervical lymphadenopathy has developed. Dictated by: Dictated on workstation # [id number]
== END ==
LOC: RAD 08:15
PROVIDERS: ATTEND Otolaryngology Otolaryngology/Facial Plastic Surgery
DX: C08.0 Malignant neoplasm of submandibular gland (principal)
CPT/HCPCS: 70491; 78815; 82565; 84520; A9552; 36415

== ENCOUNTER 2022-08-27 09:57 | Outpatient (RCR) | payer MEDICARE ==
[~2022-08-27 09:57] MED LIST changes: -CATHETER FLUSH 10 ML SYR IV PRN; -HOLD METFORMIN - RECEIVED CONTRAST 20 ML VIAL IV SCH; -IOHEXOL 350 MG/ML 100 ML (OMNIPAQUE 350) VIAL IV ONE; -NS 100 ML (IVPB) BAG IV ONE
== END 2022-08-28 | disposition home or self-care (01) ==
PROVIDERS: ATTEND Orthopaedic Surgery
DX: Z47.1 Aftercare following joint replacement surgery (principal); Z96.651 Presence of right artificial knee joint

== ENCOUNTER 2022-09-17 09:22 | Outpatient (RCR) | payer MEDICARE | END 2022-09-17 15:00 | disposition home or self-care (01) | PROVIDERS: ATTEND Orthopaedic Surgery | DX: Z47.1 Aftercare following joint replacement surgery (principal); I10 Essential (primary) hypertension; Z96.651 Presence of right artificial knee joint ==

== ENCOUNTER → 2022-11-09 | Outpatient (CLI) | payer MEDICARE ==
--- NOTE | 2022-11-09 16:44 | Diagnostic Imaging Report ---
INDICATION: Routine screening. COMPARISON: 08/26/2017 and 08/25/2016. TECHNIQUE: 2D and 3D bilateral screening mammography was performed with CAD. FINDINGS: Scattered fibroglandular densities are identified bilaterally. The previously noted benign nodule in the medial left breast remains stable. No spiculated mass or malignant-appearing microcalcifications are seen. The axillae are unremarkable. IMPRESSION: No mammographic features suspicious for malignancy are identified. ACR BI-RADS Category 2: Benign findings. Result letter will be mailed to the patient. Note: At least 10% of breast cancer is not imaged by mammography. Dictated by: Dictated on workstation # [id number]
== END ==
LOC: RAD 09:18 → MERGE 09:45
PROVIDERS: ATTEND Nurse Practitioner Women's Health
DX: Z12.31 Encounter for screening mammogram for malignant neoplasm of breast (principal)
CPT/HCPCS: 77063; 77067

== ENCOUNTER → 2022-12-07 | Outpatient (CLI) | payer MEDICARE ==
[~2022-12-07] MED LIST changes: +GADOBUTROL 15 MMOL/15 ML (GADAVIST) VIAL IV ONE
--- NOTE | 2022-12-08 09:40 | Diagnostic Imaging Report ---
EXAMINATION: MRI BREAST BILAT W W/O CON INDICATION: High risk screening. 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 No current breast-related symptoms. TECHNIQUE: Utilizing a 1.5 Melany magnet, the patient was placed in the prone position with a dedicated breast coil in place. Axial STIR, T2 fat sat, T1 and T1 fat-sat images are obtained without contrast. Postcontrast high-resolution dynamic images are also obtained. Pre and post contrasted images are then evaluated with [employer] for evaluation of possible angiogenesis. 10 mL of Gadavist gadolinium contrast material was administered intravenously. COMPARISON: Breast MRI performed on 12/12/2013. Comparison is also made to prior mammograms dating back to 2012. Most recent screening mammogram was performed on 11/09/2022. FINDINGS: The breasts are composed of scattered fibroglandular tissue. There is mild background parenchymal enhancement, with scattered foci of enhancement also related to background. There is no suspicious mass or non-mass enhancement in either breast. There is no axillary or internal mammary adenopathy. IMPRESSION: No MR evidence of malignancy in either breast and no significant change from prior breast MRI. BI-RADS Category 1: Negative RECOMMENDATIONS: Given patient's high-risk status, continued surveillance is recommended with annual screening mammogram and breast MRI, ideally alternating every 6 months. Dictated by: Dictated on workstation # [id number]
== END ==
LOC: RAD 09:03
PROVIDERS: ATTEND Nurse Practitioner Women's Health
DX: Z12.39 Encounter for other screening for malignant neoplasm of breast (principal); Z80.3 Family history of malignant neoplasm of breast
CPT/HCPCS: 77049

== ENCOUNTER → 2023-01-06 | Outpatient (CLI) | payer MEDICARE ==
[~2023-01-06] MED LIST changes: -GADOBUTROL 15 MMOL/15 ML (GADAVIST) VIAL IV ONE; +HOLD METFORMIN - RECEIVED CONTRAST 20 ML VIAL IV SCH; +IOHEXOL 350 MG/ML 100 ML (OMNIPAQUE 350) VIAL IV ONE; +NS 100 ML (IVPB) BAG IV ONE
[2023-01-06 10:14] LABS: CREATININE SERUM 1.06 MG/DL (0.60-1.30)
--- NOTE | 2023-01-06 12:17 | Diagnostic Imaging Report ---
Clinical indications: Patient with history of cancer. Right submandibular gland. Patient with thyroid nodule. CT scan of the neck soft tissue performed with 75 mL of Omnipaque 350 IV contrast. Sagittal and coronal reformatted images are created. Auto Exposure Controls were utilized during the CT exam to meet ALARA standards for radiation dose reduction. COMPARISON: CT scan of the neck soft tissue with contrast dated 07/26/2022. FINDINGS: Stable surgical absence of the right submandibular gland seen with stable scarring. There is no evidence of developing mass. There remainder of the salivary glands are unremarkable. Again seen roughly 13 mm low-density nodule involving the left thyroid lobe. There is no lymphadenopathy. The nasopharynx, oropharynx, hypopharynx, and laryngeal soft tissue structures are stable with no significant interval abnormality. Medialized right carotid arteries are seen slightly distorting the configuration of the posterior right oropharyngeal region. The visualized portions are cavity, tongue, and sublingual regions show no significant abnormality. There is no lymphadenopathy. There is no significant change to the grossly 12 mm in greatest width calcified meningioma along the right of midline planum sphenoidale region. The remainder of the visualized intracranial structures show no significant abnormality. Orbits and globes are unremarkable. There is moderate mucosal thickening involving right maxillary sinus and [id number] amount of mucosal thickening involving left maxillary sinus. There is minimal ethmoid sinus mucosal thickening. Temporal bones show no significant abnormality. Stable calcified granuloma involving the posterior left upper lobe. There are degenerative spurs involving the cervical spine. IMPRESSION: 1: Again seen postop changes to the right submandibular region with no evidence of developing mass. There is no lymphadenopathy. 2: Stable 13 mm nodule involving the left thyroid lobe. 3: Stable calcified planum sphenoidale meningioma. 4.: The remainder of this exam is stable with no interval significant abnormality. Dictated by: Dictated on workstation # [id number]
--- NOTE | 2023-01-06 16:19 | Diagnostic Imaging Report ---
PROCEDURE: US Thyroid. TECHNIQUE: Multiple real-time grayscale images were obtained of the thyroid in various projections. INDICATION: Thyroid nodules, follow-up. COMPARISON: Correlation is made with prior ultrasound from 11/11/2021. FINDINGS: The right lobe of the thyroid measures 4.2 x 1.3 x 1.5 cm, and the left lobe measures 4.4 x 1.4 x 1.5 cm. Isthmus is 3 mm in thickness. Previously noted right thyroid cyst is not seen. There is a mixed echogenicity nodule in the right lobe, which is stable at approximately 3 mm. Mixed solid and cystic nodule in the left lobe of the thyroid noted previously measures 1.2 x 0.8 x 0.9 cm compared with 1.4 x 0.9 x 1.1 cm. No new mass is identified. IMPRESSION: Stable thyroid ultrasound when compared with examination from 11/11/2021. Dominant nodule in the left lobe remains stable. Dictated by: Dictated on workstation # [id number]
== END ==
LOC: RAD 09:25
PROVIDERS: ATTEND Nurse Practitioner
DX: E04.1 Nontoxic single thyroid nodule (principal); Z85.828 Personal history of other malignant neoplasm of skin
CPT/HCPCS: 36415; 70491; 76536; 82565; 84520

== ENCOUNTER → 2023-01-06 | Outpatient (CLI) | payer MEDICARE ==
[2023-01-06 10:36] LABS: BASOPHILS # (AUTO) 0.1 10^3/uL (0.0-0.1); BASOPHILS % (AUTO) 1 % (0-10); EOSINOPHILS # (AUTO) 0.3 10^3/uL (0.0-0.3); EOSINOPHILS % (AUTO) 4 % (0-10); HEMATOCRIT 42 % (35-52); HEMOGLOBIN 14.3 g/dL (11.5-16.0); LYMPHOCYTES # (AUTO) 2.6 10^3/uL (1.0-4.0); LYMPHOCYTES % (AUTO) 31 % (12-44); MEAN CORPUSCULAR HEMOGLOBIN 30 pg (25-34); MEAN CORPUSCULAR HGB CONC 34 g/dL (32-36); MEAN CORPUSCULAR VOLUME 88 fL (80-99); MEAN PLATELET VOLUME 9.2 fL (9.0-12.2); MONOCYTES # (AUTO) 0.7 10^3/uL (0.0-1.0); MONOCYTES % (AUTO) 8 % (0-12); NEUTROPHILS # (AUTO) 4.6 10^3/uL (1.8-7.8); NEUTROPHILS % (AUTO) 56 % (42-75); PLATELET COUNT 243 10^3/uL (130-400); WHITE BLOOD COUNT 8.2 10^3/uL (4.3-11.0)
[2023-01-06 10:48] LABS: BILIRUBIN,TOTAL 0.9 MG/DL (0.1-1.0); CALCIUM 9.2 MG/DL (8.5-10.1); CREATININE SERUM 1.07 MG/DL (0.60-1.30); POTASSIUM 4.4 MMOL/L (3.6-5.0); TOTAL PROTEIN 6.8 GM/DL (6.4-8.2)
[2023-01-06 11:10] LABS: FREE T4 (FREE THYROXINE) 0.85 NG/DL (0.70-1.48)
== END ==
LOC: LAB 10:26
PROVIDERS: ATTEND Family Medicine
DX: R53.81 Other malaise (principal); I10 Essential (primary) hypertension
CPT/HCPCS: 36415; 80053; 84439; 84443; 85025

== ENCOUNTER → 2023-01-10 | Outpatient (CLI) | payer MEDICARE ==
[~2023-01-10] MED LIST changes: +CATHETER FLUSH 10 ML SYR IVP PRN; -HOLD METFORMIN - RECEIVED CONTRAST 20 ML VIAL IV SCH; -IOHEXOL 350 MG/ML 100 ML (OMNIPAQUE 350) VIAL IV ONE; -NS 100 ML (IVPB) BAG IV ONE
--- NOTE | 2023-01-11 08:59 | Diagnostic Imaging Report ---
INDICATION: Subsequent staging adenocystic carcinoma of the right submandibular gland. Serum blood glucose level at the time of injection is 126 mg/dL. Patient was administered 10.8 mCi F-18 FDG intravenously and whole-body PET imaging was performed. Noncontrast CT was also performed for attenuation correction and anatomic correlation. Correlation is made with prior whole body PET/CT study from 01/18/2022. There is symmetric activity throughout the brain. Soft tissues of the neck are unremarkable. Right submandibular gland appears to be surgically absent. No suspicious hypermetabolic foci within the soft tissues of the neck are unremarkable. No mediastinal or hilar hypermetabolism is identified. No pulmonary parenchymal hypermetabolism is detected. Physiologic activity throughout the gastrointestinal and genitourinary tract of the abdomen and pelvis is noted. No suspicious regions of hypermetabolism are identified. The lower extremities are unremarkable apart from postoperative changes from bilateral total knee arthroplasties. IMPRESSION: Continued stable unremarkable whole-body PET/CT study when compared with prior examination from one year earlier. Dictated by: Dictated on workstation # [id number]
== END ==
LOC: RAD 07:50
PROVIDERS: ATTEND Nurse Practitioner
DX: Z15.01 Genetic susceptibility to malignant neoplasm of breast (principal); C08.0 Malignant neoplasm of submandibular gland
CPT/HCPCS: 78816; 82947; A9552

== ENCOUNTER → 2023-01-12 | Outpatient (CLI) | payer MEDICARE ==
[~2023-01-12] MED LIST changes: -CATHETER FLUSH 10 ML SYR IVP PRN
--- NOTE | 2023-01-12 09:14 | Diagnostic Imaging Report ---
CLINICAL INDICATION: Patient with Li-Fraumeni syndrome. EXAM: MRI of the brain performed without IV contrast. Sequences include axial DWI, ADC map, axial T1, axial T2, axial FLAIR, coronal gradient echo, and sagittal T1. COMPARISON: MRI of the brain with and without contrast dated 11/11/2021. FINDINGS: There is no evidence of acute cerebral infarct, intracranial hemorrhage, or gross mass effect. 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 There is interval slight progression of multiple focal areas of high T2 signal white matter changes involving both cerebral hemispheres, likely related to chronic small vessel ischemic disease. The brain parenchymal volume appears appropriate for patient's age. There is normal nino-white matter distinction. There is no significant midline shift or herniation. The visualized false pass of Saenz vascular structures are unremarkable. A partial empty sella turcica is noted. The previously seen planum sphenoidale meningioma is not well delineated on this exam but, on the sagittal T1 sequence, appears grossly similar. Previously, this lesion measured 10 mm x 8 mm x 7 mm (AP x Trans x CC). There is no brain herniation or midline shift. There is no hydrocephalus. The basal cisterns are unremarkable. The basal cisterns are unremarkable. The skull, extracranial soft tissue, and orbits are unremarkable. There is a moderate-sized mucus retention cyst in the right maxillary sinus. There is a small mucus retention cyst involving the left maxillary sinus. Temporal bones show no significant abnormality. IMPRESSION: 1: There is no evidence of an acute intracranial process. 2: There is stable appearance of the brain parenchyma with mild chronic small vessel ischemic disease. 3: The previously seen planum sphenoidale meningioma is not well delineated on this exam due to no IV contrast given but its appearance has not significantly changed as visualized. 4: Paranasal sinus disease. Dictated by: Dictated on workstation # [id number]
--- NOTE | 2023-01-12 09:20 | Diagnostic Imaging Report ---
EXAMINATION: MRI of the abdomen without contrast. TECHNIQUE: Multiplanar, multisequence MR images of the abdomen were obtained without intravenous contrast. HISTORY: Li Fraumeni syndrome. COMPARISON: PET/CT dated 01/10/2023. FINDINGS: Liver: No suspicious liver lesions. No steatosis. No surface nodularity. Ducts: No biliary ductal dilation. Gallbladder: Absent. Pancreas: There is a 2.1 x 1.9 cm T1 and T2 dark mass adjacent to the pancreatic head unchanged from PET/CT. It has also unchanged from PET/CT of 07/26/2022 and contains calcifications on CT imaging. Spleen: Normal. Adrenals: Normal. Kidneys: No suspicious lesions. No hydronephrosis. Bowel: Normal. Other: No lymphadenopathy. Visualized portions of the thorax are normal. No suspicious osseus lesions. IMPRESSION: 1. Unchanged 2.1 x 1.9 cm mass adjacent to the pancreatic head dating back to PET/CT of 07/26/2022. Dictated by: Dictated on workstation # [id number]
== END ==
LOC: RAD 08:00
PROVIDERS: ATTEND Family Medicine
DX: D42.0 Neoplasm of uncertain behavior of cerebral meninges (principal); I67.82 Cerebral ischemia; J34.89 Other specified disorders of nose and nasal sinuses; K86.89 Other specified diseases of pancreas; Z15.01 Genetic susceptibility to malignant neoplasm of breast
CPT/HCPCS: 70551; 74181

== ENCOUNTER → 2023-02-08 | Outpatient (CLI) | payer MEDICARE ==
[2023-02-08 10:25] LABS: FREE T4 (FREE THYROXINE) 0.9 NG/DL (0.70-1.48)
== END ==
LOC: LAB 09:22
PROVIDERS: ATTEND Family Medicine
DX: E07.9 Disorder of thyroid, unspecified (principal)
CPT/HCPCS: 36415; 84439; 84443; 84481

== ENCOUNTER → 2023-04-19 | Outpatient (CLI) | payer MEDICARE ==
[2023-04-19 14:54] LABS: FREE T4 (FREE THYROXINE) 1.05 NG/DL (0.70-1.48)
== END ==
LOC: LAB 13:57
PROVIDERS: ATTEND Family Medicine
DX: E07.9 Disorder of thyroid, unspecified (principal)
CPT/HCPCS: 36415; 84439; 84443; 84481

== ENCOUNTER → 2023-06-30 | Outpatient (CLI) | payer MEDICARE ==
[~2023-06-30] MED LIST changes: -CELE-63 PO; +CELE-91 PO; -GABA-490 PO; +GABA-491 PO
== END ==
LOC: ONC 08:55
PROVIDERS: ATTEND Radiology Radiation Oncology
DX: K21.9 Gastro-esophageal reflux disease without esophagitis (principal); M19.90 Unspecified osteoarthritis, unspecified site; E66.9 Obesity, unspecified; Z80.3 Family history of malignant neoplasm of breast
CPT/HCPCS: 99213